=== PATIENT | female | born 1965 | race Hispanic/Latino ===

== ENCOUNTER 2018-11-30 09:30 | Outpatient (CLI) | payer OTHER ==
--- NOTE | 2018-11-30 10:00 | RAD ---
PA AND LATERAL VIEWS CHEST: HISTORY: Dyspnea. FINDINGS/IMPRESSION: Comparison is made with the exam of 10/13/2012. The heart size is normal. The lungs are expanded without foal areas of consolidation, pneumothoraces , or pleural effusions. There is continued elevation of the right hemidiaphragm. There is a focal density in the left lung base. The possibility of this representing a mass/nodule c annot be excluded. Further evaluation with CT scan of the chest is recommended. CODE T
== END 2018-11-30 09:31 | disposition home or self-care (01) ==
LOC: RAD 09:30
PROVIDERS: ATTEND Internal Medicine Critical Care Medicine
DX: R06.00 Dyspnea, unspecified (principal); J98.4 Other disorders of lung; J98.6 Disorders of diaphragm
CPT/HCPCS: 71046

== ENCOUNTER 2019-12-01 11:00 | Inpatient (IN) | payer OTHER ==
[2019-12-01] MEDS ORDERED: Ondansetron PF 4 MG/2 ML Vial IVP PRN (11:54)
[2019-12-01] MEDS ORDERED: Ondansetron ODT 4 MG TAB PO PRN (11:54)
[2019-12-01] MEDS ORDERED: Acetaminophen 325 MG TAB PO PRN (11:54)
[2019-12-01] MEDS: cefTRIAXone\\ROCEPHIN 1 GM in Sodium Chloride 0.9% 100 ML IVPB SCH (12:33)
[2019-12-01] MEDS: Azithromycin 500 MG in Sodium Chloride 0.9% 250 ML 250 ML IVPB SCH (13:29)
[2019-12-01 14:06] VITALS: BMI 27.4
--- NOTE | 2019-12-01 16:38 | HP ---
CHIEF COMPLAINT: Direct admission from [facility] for influenza and asthma flare. HISTORY OF PRESENT ILLNESS: This patient is a 54-year-old female, who was here visiting a family member at this facility on Tuesday, five days ago, at which time she started experiencing some chills. She had her temperature taken here and it was slightly over 100. She left here, went home to [place] by the time she got there. She had much worse chills. Her fever was up to 103. She continued to have fever and vomiting, but then the fever subsequently resolved the following day and did not recur until yesterday (Tuesday). She felt at that point she need to be evaluated and went to the [facility]. There, she was evaluated and noted to have positive flu screen for influenza A. She was started on Tamiflu. She was felt to have some dehydration, was found to be mildly hypokalemic and was diagnosed with bronchospasm and shortness of breath as well. She was given IV fluids, albuterol and Atrovent inhalers, antibiotics, and admitted there for observation overnight. The patient states that she did okay, however, this morning for the first time in her opinion, she started feeling short of breath and had a significant cough. She has chronic sinus disease and has chronic drainage. This morning, the cough was productive of discolored sputum. She was given additional nebulizer treatments along with steroids, Toradol, and was subsequently transferred to this facility. She reports currently that she does not feel like she is wheezing much that she is no longer coughing and was feeling somewhat better. She was able to tolerate p.o. last night and ate breakfast this morning and is not currently having any issues with nausea. She did report that she had one episode of diarrhea, but after that has not had a bowel movement at all and that appears to be largely resolved as well. LABORATORY DATA: Other labs at that facility notable for white count of 5.6, hemoglobin of 8.7 with MCV of 65.4. Chest x-ray was clear. Sodium 137, potassium 3.2, chloride 102, CO2 is 29, calcium 8.4, magnesium 1.9, albumin 3.5, lactic acid 1.81, glucose 107, BUN 10, creatinine 0.7. Urinalysis was negative. Troponin was negative. REVIEW OF SYSTEMS: All other systems were reviewed. All pertinent positives and negatives noted in the history of present illness. PAST MEDICAL HISTORY: Asthma and gastroesophageal reflux. The patient follows with Dr. Mcdonald, has not seen him in about a year. PAST SURGICAL HISTORY: Appendectomy, cholecystectomy, sinus surgery x4, eye surgery, she had a BTL, a BTL reversal, tubal with unilateral salpingectomy. FAMILY HISTORY: Father had hypertension, heart disease. Mother is alive and healthy. SOCIAL HISTORY: She is a nonsmoker, nondrinker, and nondrug user. She is . She is full code and her would be her surrogate decision maker. HOME MEDICATIONS: Include albuterol, multidose inhaler p.r.n., Breo Ellipta one inhalation daily and omeprazole 1 p.o. daily. ALLERGIES: CODEINE AND LEVAQUIN. PHYSICAL EXAMINATION: VITAL SIGNS: From here vital signs are still pending, however, she appears to have normal respiratory rate and heart rate on exam. GENERAL APPEARANCE: Age-appropriate female, in no distress. Awake, alert, oriented, pleasant, and cooperative. HEART: Regular, slightly tachycardic or borderline tachycardic. LUNGS: Generally clear with minimal rales, felt likely to be more upper airway. No significant wheezes are noted. ABDOMEN: Soft, nontender, and nondistended. Positive bowel sounds. No masses. No organomegaly. EXTREMITIES: No cyanosis, clubbing, or edema. IMPRESSION AND PLAN: 1. Acute influenza infection with influenza A. Continue with Tamiflu. 2. Nausea, vomiting secondary to the influenza infection, appears to be resolved. We will continue with p.r.n. Zofran. 3. Diarrhea again secondary to acute infection appears to be resolved. 4. Initially appeared to be clinically dehydrated per the ER notes. The patient was hydrated. She appears to be euvolemic presently. We will likely continue some small amount of fluids for now. 5. Asthma. The patient has a history of underlying asthma, which is quite well controlled. She uses her Breo Ellipta daily. Says she rarely has any need for her rescue inhaler given her risk, however, we will go and cover with antibiotics for community-acquired pneumonia as well as the Tamiflu. I do not intend to give additional steroids presently giving the underlying infection and unless there is some other indication to do so. 6. Microcytic anemia. We will check iron studies in the morning along with repeat CBC. 7. History of reflux. Continue PPI. 8. Hypokalemia, repleted at the other emergency department. We will recheck those values in the morning as well. Job ID: [id number]
[2019-12-01] MEDS: Mometasone/Formoterol 120 PUFF INHALER INH SCH (18:38)
[2019-12-01] MEDS: Oseltamivir 75 MG CAP PO SCH (20:24)
[2019-12-01] MEDS: Albuterol Sulfate 1.25 MG/3 ML NEB NEB PRN (23:09)
[2019-12-02 06:05] LABS: Iron 11 ug/dL (50-170); Iron Binding Capacity, Total 331 mcg/dL (265-497)
[2019-12-02 06:07] LABS: Anion Gap 11 mmol/L (10-20); BUN (Urea Nitrogen) 9 mg/dL (9.8-20.1); Calc. Creatinine Clearance 101 mL/min (70-130); Calcium 8.3 mg/dL (7.8-10.44); Carbon Dioxide 26 mmol/L (22-29); Chloride 109 mmol/L (98-107); Estimated GFR-MDRD Greater than 90; Glucose 128 mg/dL (70-105); Iron 11 ug/dL (50-170); Iron Binding Capacity, Total 341 mcg/dL (265-497); Potassium 3.6 mmol/L (3.5-5.1); Sodium 142 mmol/L (136-145)
[2019-12-02 06:11] LABS: #Lymphocytes 1.5 thou/uL (1.20-3.40); #Monocytes 0.5 thou/uL (0.11-0.59); #Neutrophils 8.8 thou/uL (1.40-6.50); %Basophils 0.1 % (0.0-1.0); %Lymphocytes 13.7 % (21.0-51.0); %Monocytes 4.6 % (0.0-10.0); %Neutrophils 81.6 % (42.0-75.0); Elliptocytes SLIGHT = 2-5 cells (100X) (0-1/hpf); Hemoglobin 8.2 g/dL (12.0-16.0); Hypochromia SLIGHT = 6-15 cells (100X) (0-5/hpf); MDiff Complete? YES; Mean Corpuscular HGB CONC 30.2 g/dL (32.0-36.0); Mean Corpuscular Hemoglobin 21.2 pg (27.0-31.0); Mean Platelet Volume 10.3 fL (7.4-10.4); Microcytosis SLIGHT = 6-15 cells (100X) (0-5/hpf); Platelet Count 273 thou/uL (130-400); Platelet Morphology Comment Appears Adequate; RBC Distribution Width 17.4 % (11.5-14.5); Red Blood Cell (RBC) Count 3.85 mill/uL (4.20-5.40); White Blood Cell (WBC) Count 10.8 thou/uL (4.8-10.8)
[2019-12-02] MEDS: Mometasone/Formoterol 120 PUFF INHALER INH SCH ×2 (06:58→19:06)
[2019-12-02] MEDS: Enoxaparin Sodium 40 MG/0.4 ML SYRINGE SC SCH (08:52)
[2019-12-02] MEDS: Oseltamivir 75 MG CAP PO SCH ×2 (08:52→21:17)
[2019-12-02] MEDS: Albuterol Sulfate 1.25 MG/3 ML NEB NEB PRN ×2 (12:06→21:46)
[2019-12-02] MEDS: Azithromycin 500 MG in Sodium Chloride 0.9% 250 ML 250 ML IVPB SCH (13:11)
[2019-12-02] MEDS: cefTRIAXone\\ROCEPHIN 1 GM in Sodium Chloride 0.9% 100 ML IVPB SCH (13:11)
--- NOTE | 2019-12-02 13:51 | PDOC.HOSPP ---
- Subjective Subjective: pt was sick since tuesday, went to urgent care. better since admission. family at bedside. - Objective Vital Signs & Weight: Vital Signs (12 hours) Temp Pulse Resp BP Pulse Ox 12/02/19 12:06 79 20 97 12/02/19 12:00 97 12/02/19 11:15 69 16 117/77 95 12/02/19 08:26 95 12/02/19 08:00 96 12/02/19 07:07 98.6 F 70 18 112/71 96 12/02/19 06:58 71 16 95 12/02/19 04:00 98.8 F 66 18 105/65 94 L 12/02/19 02:40 96 Weight Weight 150 lb 2 oz I&O: 12/01/19 12/02/19 12/03/19 06:59 06:59 06:59 Intake Total 1430 Balance 1430 Result Diagrams: 12/02/19 05:12 12/02/19 05:12 Hospitalist ROS - Medication Medications: Active Medications Generic Name Dose Route Start Last Admin Trade Name Freq PRN Reason Stop Dose Admin Albuterol Sulfate 1.25 mg 12/01/19 11:57 12/02/19 12:06 Albuterol Sulfate NEB 1.25 mg [id number] PRN Administration Wheezing Enoxaparin Sodium 40 mg 12/02/19 09:00 12/02/19 08:52 Lovenox SC 40 mg 0900 JAZMIN Administration Azithromycin 500 mg/ Sodium 250 mls @ 250 mls/hr 12/01/19 14:00 12/02/19 13: 11 Chloride IVPB 250 mls Q24HR AJZMIN Administration Ceftriaxone Sodium 1 gm/ 100 mls @ 200 mls/hr 12/01/19 13:00 12/02/19 13:11 Sodium Chloride IVPB 100 mls Q24HR JAZMIN Administration Mometasone Furoate/Formoterol Fumar 1 puff 12/01/19 18:30 12/02/19 06:58 Dulera 100 Mcg/5 Mcg Inhaler INH 1 puff BID-RT JAZMIN Administration Oseltamivir Phosphate 75 mg 12/01/19 21:00 12/02/19 08:52 Tamiflu PO 12/06/19 09:01 75 mg BID JAZMIN Administration Pantoprazole Sodium 40 mg 12/02/19 09:00 12/02/19 08:52 Protonix PO 40 mg DAILY JAZMIN Administration - Exam General Appearance: NAD, awake alert, ill appearing Eye: PERRL ENT: no oropharyngeal lesions Neck: supple Heart: RRR Respiratory: CTAB Gastrointestinal: soft, non-tender, non-distended, normal bowel sounds Extremities: no cyanosis Neurological: no focal deficits Hosp A/P - Plan old records reviewed/req Influenza A +ve prob CAP [ cannot be r/o] - cw tamiflu stop on tuesday -augmentin for CAP upon dc.//currently on ctx +zithro Asthma -pt on maintenace regimen of Brio at home, once daily Severe Mircocytic anemia of chronic dz - nl cscope 2 years ago -tubal ligation, intact uterus, menopause several yrs ago -on iron supplement -iron sat only 3 and iron 11, ferritin not high -one dose of venofer -pt is [place] origin and no recent travel outside the country, works in the school., known to have iron def anemia -fw with PCP for outpt workup, will check with GI
[2019-12-02] MEDS ORDERED: Iron, Sodium Ferric Gluconate 250 MG in Sodium Chloride 0.9% 250 ML 250 ML IVPB SCH (14:00)
[2019-12-02] MEDS ORDERED: Iron Sucrose Complex 200 MG in Sodium Chloride 0.9% 250 ML 250 ML IVPB SCH (14:00)
[2019-12-02] MEDS ORDERED: Loratadine 10 MG TAB PO SCH (17:00)
[2019-12-02] MEDS ORDERED: Fluticasone Propionate Nasal Spray 16 gm Bottle NASAL SCH (17:00)
[2019-12-02] MEDS: Fluticasone Propionate Nasal Spray 16 gm Bottle NASAL SCH (18:02)
[2019-12-03 05:20] LABS: #Lymphocytes 2.5 thou/uL (1.20-3.40); #Monocytes 0.5 thou/uL (0.11-0.59); #Neutrophils 5.8 thou/uL (1.40-6.50); %Basophils 0.3 % (0.0-1.0); %Eosinophils 0.2 % (0.0-10.0); %Monocytes 5.9 % (0.0-10.0); %Neutrophils 65.7 % (42.0-75.0); Hemoglobin 7.6 g/dL (12.0-16.0); Mean Corpuscular HGB CONC 30.5 g/dL (32.0-36.0); Mean Corpuscular Hemoglobin 21.4 pg (27.0-31.0); Mean Corpuscular Volume 70.2 fL (78.0-98.0); Mean Platelet Volume 10.4 fL (7.4-10.4); Platelet Count 243 thou/uL (130-400); RBC Distribution Width 17.5 % (11.5-14.5); Red Blood Cell (RBC) Count 3.53 mill/uL (4.20-5.40); White Blood Cell (WBC) Count 8.8 thou/uL (4.8-10.8)
[2019-12-03] MEDS: Mometasone/Formoterol 120 PUFF INHALER INH SCH (07:37)
[2019-12-03] MEDS: Albuterol Sulfate 1.25 MG/3 ML NEB NEB PRN (07:39)
[2019-12-03] MEDS: Enoxaparin Sodium 40 MG/0.4 ML SYRINGE SC SCH (08:37)
[2019-12-03] MEDS: Fluticasone Propionate Nasal Spray 16 gm Bottle NASAL SCH (08:37)
[2019-12-03] MEDS: Oseltamivir 75 MG CAP PO SCH (08:38)
[2019-12-03] MEDS ORDERED: Loratadine 10 MG TAB PO SCH (09:00)
[2019-12-03] MEDS ORDERED: Iron, Sodium Ferric Gluconate 250 MG in Sodium Chloride 0.9% 100 ML IVPB SCH (13:00)
[2019-12-03] MEDS: Azithromycin 500 MG in Sodium Chloride 0.9% 250 ML 250 ML IVPB SCH (13:22)
[2019-12-03] MEDS: cefTRIAXone\\ROCEPHIN 1 GM in Sodium Chloride 0.9% 100 ML IVPB SCH (13:22)
[2019-12-03 15:40] VITALS: BP 112/76; TEMP 98.8
--- NOTE | 2019-12-04 03:38 | DIS ---
DATE OF ADMISSION: 12/01/2019 DATE OF DISCHARGE: 12/03/2019 DISCHARGE DIAGNOSES: 1. Influenza A positive. 2. Community-acquired pneumonia. 3. Asthma, on maintenance regimen of Breo. 4. Severe microcytic anemia of chronic disease. 5. Iron-deficiency anemia. PHYSICAL EXAMINATION: VITAL SIGNS: On the day of discharge, she is afebrile, normotensive, resting comfortably. CARDIOVASCULAR: Regular rate and rhythm without murmurs, rubs, or gallops. LUNGS: Clear to auscultation bilaterally without wheezing, rales, or rhonchi. ABDOMEN: Soft, nontender, and nondistended. Good bowel sounds. EXTREMITIES: Unpitting edema. MEDICATIONS: 1. Augmentin twice a day for 5 days. 2. Ferrous sulfate 160 mg twice a day. 3. Omeprazole 20 mg daily. 4. Tamiflu 75 mg twice a day, to complete the course on Tuesday. 5. Breo Ellipta 200/25 mcg inhalation daily. HOSPITAL COURSE: This is a 54-year-old female, admitted with flu positive as well as community-acquired pneumonia. She received ceftriaxone, Zithromax as well as Tamiflu. She is clinically improved. She has chronic iron-deficiency anemia/microcytic. The patient had colonoscopy in the past and that was negative. The patient has not been taking her iron supplement for a while. She needs outpatient followup with a hematology clinic. She received 2 doses of IV Venofer. Her hemoglobin is around 7.6 prior to discharge. She is clinically stable to discharge home today. DISCHARGE INSTRUCTIONS: 1. Activity: As tolerated. 2. Diet: Healthy-heart diet. 3. Followup: With the primary care physician. Since the patient is not taking her iron supplement regularly, it would be prudent to give a month trial with the iron supplement, for which prescription is given. Still if not improving, then she needs hematology clinic referral. 4. Instructions for primary care physician: Check her CBC in a month. If her hemoglobin level not improved, she will probably need hematology clinic referral. TIME SPENT: Discharge time took over 30 minutes. Job ID: [id number]
[2019-12-04] MEDS ORDERED: Azithromycin 250 MG TAB PO SCH (09:00)
== END 2019-12-03 18:55 | disposition home or self-care (01) | DRG 195 ==
LOC: SURG A 11:00
PROVIDERS: ADMIT Internal Medicine; ATTEND Internal Medicine
DX: J10.08 Influenza due to other identified influenza virus with other specified pneumonia (principal); J45.909 Unspecified asthma, uncomplicated; D50.9 Iron deficiency anemia, unspecified; D63.8 Anemia in other chronic diseases classified elsewhere; K21.9 Gastro-esophageal reflux disease without esophagitis; E86.0 Dehydration; E87.6 Hypokalemia; Z98.51 Tubal ligation status; Z90.49 Acquired absence of other specified parts of digestive tract; Z88.1 Allergy status to other antibiotic agents; Z88.5 Allergy status to narcotic agent
CPT/HCPCS: 36415; 80048; 82728; 83540; 83550; 85025; 94640; 94664; J0456; J0696; J1650; J2405; J2916; J3490; J7050

== ENCOUNTER 2021-11-05 12:46 | Outpatient (CLI) | payer BC | END 2021-11-05 12:47 | disposition home or self-care (01) | LOC: BICMAMMO 12:46 | PROVIDERS: ATTEND Obstetrics & Gynecology | DX: Z12.31 Encounter for screening mammogram for malignant neoplasm of breast (principal); Z91.89 Other specified personal risk factors, not elsewhere classified | CPT/HCPCS: 77063; 77067 ==

== ENCOUNTER 2022-10-05 10:47 | Outpatient (CLI) | payer BC | END 2022-10-05 10:48 | disposition home or self-care (01) | LOC: RAD 10:47 | PROVIDERS: ATTEND Internal Medicine Critical Care Medicine | DX: R06.00 Dyspnea, unspecified (principal) | CPT/HCPCS: 71046 ==